=== PATIENT | female | born 1980 | race Caucasian/White ===

== ENCOUNTER 2019-06-13 10:37 | Outpatient (CLI) | payer BC ==
--- NOTE | 2019-06-13 11:09 | RAD ---
RADIOGRAPH CHEST 2 VIEWS: DATE: 06/13/2019 HISTORY: 39-year-old female with acute bronchitis. FINDINGS: There is no airspace density, pulmonary edema, pleural effusion, pneumothorax, or cardiomegaly. IMPRESSION: No acute cardiopulmonary findings.
== END 2019-06-13 10:38 | disposition home or self-care (01) ==
LOC: BICRAD 10:37
PROVIDERS: ATTEND Family Medicine
DX: J20.9 Acute bronchitis, unspecified (principal)
CPT/HCPCS: 71046

== ENCOUNTER 2020-08-14 09:47 | Outpatient (CLI) | payer BC ==
--- NOTE | 2020-08-14 10:30 | ULT ---
Ultrasound of theabdomen: 08/14/2020 COMPARISON:None available HISTORY:Abdominal pain TECHNIQUE: Multiplanar grayscale sonographic imaging of theabdomen FINDINGS:Imaged IVC and aorta appear within normal limits. Pancreas and hepatic parenchyma appear unremarkable. Spleen is normal in size, measuring up to 10.8 c m. No gallbladder wall thickening or pericholecystic fluid. The circular distributor reports a negative Dill's sign. Common bile duct is normal in caliber, measuring 5-6 mm. There is a small nonshadowing 3-4 mm echogenic focus in the region of the gallbladder neck which coul d represent a sludge ball or noncalcified stone. Right kidney measures 10.5 cm in craniocaudal dimension and left kidney measures 10.7 cm in craniocau dylan dimension. No renal mass, hydronephrosis, or renal stone noted. IMPRESSION: Small echogenic focus within the gallbladder. No sonographic evidence of acute cholecysti tis.
== END 2020-08-14 09:48 | disposition home or self-care (01) ==
LOC: BICULT 09:47
PROVIDERS: ATTEND Family Medicine
DX: R10.84 Generalized abdominal pain (principal); K82.8 Other specified diseases of gallbladder
CPT/HCPCS: 36415; 80053; 80061; 81001; 85025; 87086; 87338; 87624; 88142; 93975; G0123